=== PATIENT | male | born 1935 | race Caucasian/White ===

== ENCOUNTER 2025-06-11 12:23 | Observation (INO) ==
--- NOTE | 2025-06-11 13:33 | Emergency Department Note ---
Impression & Plan Cystitis, Hydronephrosis, left, Dysuria ED Provider Note NAME: JESSIE PEREZ Jr AGE: 89 SEX: M : 1935 ARRIVES VIA: Walk-In INFORMANT: Patient, ED PROVIDER(S): Franklin Subramanian MD CHIEF COMPLAINT: Urinary symptoms MEDICAL DECISION MAKING: Patient presents with above with associated lower abdominal pain. IV was established and blood work is obtained. Patient ordered IV Tylenol 1 g. Patient was ordered empiric IV Rocephin 2 g. The patient's blood work shows a white count of 13 with a hemoglobin of 10.6. Platelet count is unremarkable. The patient's kidney function with a creatinine 1.5 which is around the patient's baseline. The patient did receive IV fluids. Urinalysis does show concern for possible infection as he does have whites and bacteria. CT abdomen pelvis does show chronic bladder outlet obstruction and cystitis. Also mild left hydronephrosis hydroureter possible mild stricture to the left UVJ. I did reevaluate the patient's and there is concern of the patient's ability to take care of himself at home. The patient has not been eating or drinking. The patient is also have a dysuria for 3 weeks in duration. I did speak with the on-call hospitalist service NILO Martinez and the patient was admitted by Dr. Galarza. I also did message NILO Moralez with urology and the patient was admitted to the medicine service with a urology consult. Discussion w/ other healthcare providers: NILO Martinez and Dr. Melchor inpatient medicine service NILO Moralez and Dr. Pate urology Prior /Outside records reviewed: None Differential diagnosis: Appendicitis, testicular torsion, UTI, diverticulitis, obstruction, renal colic, mesenteric adenitis, enteririts, PUD, pancreatitis, biliary pathology, hernia, volvulus, constipation, as well as other pathologies were considered. Diagnostics, as interpreted by me: ECG: None Cardiac monitoring: An order was placed for continuous cardiac monitoring. The monitor shows a rate of 62 with sinus rhythm. Patient was placed on pulse oximetry Medical decision rules: None Imaging studies: I informally interpreted the patient's CT abdomen pelvis that showed concern for cystitis with formal report to follow. HPI: Patient presents due to concern for lower abdominal pain associated urinary symptoms. Patient reportedly did have a bladder cancer procedure performed by Dr. Ruiz at [facility] on May 18. The patient has had pain ever since the procedure but this has gotten progressively worse. Is reportedly seen in the outpatient setting yesterday and had a urine sample submitted but is unclear as to whether or not there was infection. The patient presented today given his worsening symptoms. The patient does have burning with urination as well as frequency. They have not noticed any obvious hematuria but it may be slightly tinged. No reported nausea or vomiting but poor p.o. intake. Patient denies any chest pain or shortness of breath no cough or fever. PAST MEDICAL HISTORY: See Below PAST SURGICAL HISTORY: See Below SOCIAL HISTORY: See Below HOME MEDICATIONS: See Below ALLERGIES: See Below VITALS: See Below PHYSICAL EXAMINATION: GENERAL: Frail in appearance. Wearing glasses. EYE EXAM: Normal conjunctiva. PERRL, no anisocoria and EOM's grossly intact w/o pain. OROPHARYNX: Moist mucus membranes, grossly normal dentition. NECK: Trachea midline, no stridor. LUNGS: Clear to auscultation. Normal chest wall mechanics. HEART: NSR, no MRG. ABDOMEN: Abdomen soft, lower abdominal pain most prominent in the suprapubic area, no masses, no rebound or guarding. BACK: No CVA TTP. SKIN: No rashes and no bruising. UPPER EXTREMITIES: Upper extremities are grossly normal. LOWER EXTREMITIES: Grossly normal, no edema. NEURO EXAM: Awake and alert, follows commands, no obvious facial asymmetry, normal speech, moves all 4 extremities. Past Med/Surg History Problem List (Updated 06/11/25 @ 20:41 by Franklin Subramanian MD) Dysuria (Acute) Cystitis (Acute) Hydronephrosis, left (Acute) Fever (Acute) Community acquired pneumonia (Acute) Medical History CKD (chronic kidney disease), stage III Bladder cancer History of esophageal cancer s/p chemo and radiation, esophagectomy and partial gastrectomy Dementia GERD (gastroesophageal reflux disease) Mitral regurgitation Tricuspid regurgitation DM type 2 (diabetes mellitus, type 2) HLD (hyperlipidemia) Social History Smoking Status: Former smoker Tobacco Type: Cigarettes Cigarettes Per Day: 1 ppd; Hx Alcohol Use: No Hx Substance Use: No Preferred Language: Chadian Communication Ability: Effective Time Clock Inspector Required: No Beliefs That Will Affect Care: None Current Living Situation: Spouse Feels Safe at Home: Yes Safety Concerns: Feels Safe At This Time Assistive Devices: Denture - Upper, Denture - Lower and Glasses Allergies Allergies Allergy/AdvReac Type Severity Reaction Status Date / Time No Known Allergies Allergy Verified 01/02/25 05:27 Home Meds Home Medications Medication Instructions Recorded Confirmed acetaminophen 500 mg tablet 1,000 mg PO Q6H PRN Fever 01/01/25 06/11/25 (Tylenol Extra Strength) aspirin 81 mg tablet,delayed 81 mg PO QPM 01/01/25 06/11/25 release cholecalciferol (vitamin D3) 25 25 mcg PO QAM 01/01/25 06/11/25 mcg (1,000 unit) tablet (Vitamin D3) cyanocobalamin (vitamin B-12) 1,000 mcg PO QAM 01/01/25 06/11/25 1,000 mcg tablet (Vitamin B-12) donepezil 10 mg tablet 10 mg PO QAM 01/01/25 06/11/25 ferrous sulfate 325 mg (65 mg 325 mg PO QAM 01/01/25 06/11/25 iron) tablet (Iron (ferrous sulfate)) finasteride 5 mg tablet 5 mg PO QAM 01/01/25 06/11/25 losartan 25 mg tablet 12.5 mg PO HS 01/01/25 06/11/25 memantine 5 mg tablet 5 mg PO QAM 01/01/25 06/11/25 multivitamin 1 tab PO QAM 01/01/25 06/11/25 pantoprazole 40 mg tablet,delayed 40 mg PO QAM 01/01/25 06/11/25 release simvastatin 40 mg tablet 40 mg PO QPM 01/01/25 06/11/25 tamsulosin 0.4 mg capsule 0.4 mg PO BID 01/01/25 06/11/25 venlafaxine 75 mg capsule,extended 75 mg PO QAM 01/01/25 06/11/25 release 24 hr Results & Data (ED) Vital Signs Vital Signs - 24 hr 06/11/25 12:55 06/11/25 13:21 06/11/25 15:36 Temperature 37.4 C Temperature Source Temporal Artery Scan Pulse Rate 63 Pulse Rate [Apical] 69 61 Respiratory Rate 18 20 18 Respiratory Effort / Characteristics Non-Labored Spontaneous Respiratory Depth Normal Respiratory Pattern Regular Blood Pressure 128/72 Blood Pressure [Left Arm] 174/73 H 142/64 H Blood Pressure Mean 90 Blood Pressure Mean [Left Arm] 106 90 Blood Pressure Position [Left Arm] Lying Pulse Oximetry 99 92 96 Oxygen Delivery Method Room Air Room Air Room Air Sepsis New/Unexplained Change in Mental Status No Sepsis Action Taken by Nursing No Action Required Home Medications Current Medication List: was personally reviewed by me Laboratory Data Attestation: I reviewed the patient's lab results. 06/11/25 13:23 06/11/25 13:23 Lab Results 06/11/25 06/11/25 Range/Units 13:23 14:22 WBC 13.15 H (4.8-10.8) K/ul RBC 3.85 L (4.70-6.10) M/uL Hgb 10.6 L (14.0-18.0) g/dl Hct 34.2 L (42.0-52.0) % MCV 88.8 (80.0-100.0) fL MCH 27.5 (25.0-34.0) pg MCHC 31.0 L (32.0-36.0) g/dL RDW Std Deviation 41.7 (36.4-46.3) fL RDW Coeff of Ami 13.0 (11.5-14.5) % Plt Count 302 (130-400) K/uL MPV 9.1 L (9.4-12.4) fL Immature Gran % (Auto) 0.5 % Neut % (Auto) 85.9 % Lymph % (Auto) 5.9 % Bullock % (Auto) 6.6 % Eos % (Auto) 0.9 % Baso % (Auto) 0.2 % Neut # (Auto) 11.28 H (1.40-6.50) K/uL Lymph # (Auto) 0.78 L (1.20-3.40) K/uL Bullock # (Auto) 0.87 H (0.11-0.59) K/uL Eos # (Auto) 0.12 (0.00-0.50) K/uL Baso # (Auto) 0.03 (0.00-0.20) K/uL Immature Gran # (Auto) 0.07 (0.01-0.20) K/uL Sodium 138 (136-145) mmol/L Potassium 4.1 (3.5-5.1) mmol/L Chloride 101 (98-107) mmol/L Carbon Dioxide 28 (21-32) mmol/L Anion Gap 9 (3-11) BUN 16 (6-23) mg/dl Creatinine 1.50 H (0.6-1.4) mg/dl Est Cr Clr Drug Dosing 28.5 ml/min eGFR 44.50 BUN/Creatinine Ratio 10.7 (10-20) Glucose 123 H (70-99(Fasting)) mg/dl Calcium 9.1 (8.6-10.3) mg/dl Total Bilirubin 0.8 (0.2-1.0) mg/dl AST 31 (13-39) U/L ALT 29 (7-52) U/L Alkaline Phosphatase 90 (34-104) U/L Total Protein 8.3 (6.0-8.3) gm/dl Albumin 3.5 (3.4-5.0) gm/dl Globulin 4.8 H (2.5-4.0) gm/dl Albumin/Globulin Ratio 0.7 L (0.9-2) Urine Color See Comment Urine Appearance Cloudy A (Clear) Urine pH Not Reportable Ur Specific [place] 1.008 (1.000-1.030) Urine Protein Not Reportable Urine Glucose (UA) Not Reportable Urine Ketones Not Reportable Urine Blood Not Reportable Urine Nitrite Not Reportable Urine Bilirubin Not Reportable Urine Urobilinogen Not Reportable Ur Leukocyte Esterase Not Reportable Urine RBC 3-5 H (0-2) /hpf Urine WBC >50 H (0-5) /hpf Ur Epithelial Cells 0-2 (0-2) /hpf Urine Bacteria 1+ H (None Seen) Urine Comment Administered Medications Aspirin (Aspirin 81 Mg Ectab) 81 mg PO QPM [facility] Stop: 07/11/25 20:59 Last Admin: 06/11/25 20:00 Dose: 81 mg Documented By: asg Sodium Chloride (Nss) 1,000 mls @ 80 mls/hr IV .[id number] [facility] Stop: 06/12/25 07:44 Last Admin: 06/11/25 20:05 Dose: 80 mls/hr Documented By: carlos Losartan Potassium (Losartan Potassium 25 Mg Tab) 12.5 mg PO HS [facility] Stop: 07/11/25 20:59 Last Admin: 06/11/25 20:00 Dose: 12.5 mg Documented By: asg Oxycodone HCl (Oxycodone Hcl Ir 5 Mg Tab (Immediate Release)) 2.5 mg PO TID [facility] Stop: 06/25/25 20:59 Last Admin: 06/11/25 20:04 Dose: 2.5 mg Documented By: tereg Simvastatin (Simvastatin 40 Mg Tab) 40 mg PO QPM [facility] Stop: 07/11/25 20:59 Last Admin: 06/11/25 20:01 Dose: 40 mg Documented By: carlos Tamsulosin HCl (Tamsulosin Hcl 0.4 Mg Cap) 0.4 mg PO BID [facility] Stop: 07/11/25 20:59 Last Admin: 06/11/25 20:01 Dose: 0.4 mg Documented By: carlos Discontinued Medications Acetaminophen (Ofirmev) 1,000 mg in 100 mls @ 400 mls/hr IV NOW STA Stop: 06/11/25 13:56 Last Infusion: 06/11/25 14:40 Dose: Infused Documented By: Admin: 06/11/25 14:19 Dose: 400 mls/hr Documented By: ZULEMA Ceftriaxone Sodium (Rocephin) 2,000 mg in 50 mls @ 100 mls/hr IV NOW STA Stop: 06/11/25 14:11 Last Infusion: 06/11/25 14:40 Dose: Infused Documented By: Admin: 06/11/25 13:55 Dose: 100 mls/hr Documented By: GUILLERMO Sodium Chloride (Nss) 500 mls @ 999 mls/hr IV .Q31M ONE Stop: 06/11/25 14:13 Last Infusion: 06/11/25 14:40 Dose: Infused Documented By: Admin: 06/11/25 13:55 Dose: 999 mls/hr Documented By: GUILLERMO Sodium Chloride (Nss) 500 mls @ 999 mls/hr IV .Q31M ONE Stop: 06/11/25 16:28 Last Infusion: 06/11/25 17:17 Dose: Infused Documented By: Admin: 06/11/25 16:20 Dose: 999 mls/hr Documented By: JERARDO Ioversol (Optiray 320 100ml) 90 ml IV ONCE ONE Stop: 06/11/25 15:07 Last Admin: 06/11/25 15:06 Dose: 90 ml Documented By: MIRTA Phenazopyridine HCl (Phenazopyridine Hcl 100 Mg Tab) 100 mg PO NOW ONE Stop: 06/11/25 19:31 Last Admin: 06/11/25 20:00 Dose: 100 mg Documented By: asg Imaging Data Radiologist's Impression: Abdomen/Pelvis CT 06/11/25 13:[address] WITH IV CONTRAST CT DOSE: 1193.12 mGy.cm HISTORY: lower ab pain; urinary symptoms, bladder procedure TECHNIQUE: Multiaxial CT images of the abdomen and pelvis were performed following the IV administration of 90 cc of Optiray, A dose lowering technique was utilized adhering to the principles of ALARA. COMPARISON STUDY: None FINDINGS: There is a trace left pleural effusion. There is mild elevation of the left hemidiaphragm. There is partially visualized hiatal hernia versus gastric pull-up. There are mitral valvular calcifications. There are calcifications at the left diaphragm. There is a calcified pulmonary granuloma at the right lower lobe. ABDOMEN: Liver, gallbladder, spleen, pancreas, and adrenal glands are unremarkable. There are scattered atherosclerotic calcifications. No abdominal aortic aneurysm. There is a small amount of contrast in the right renal collecting system which limits evaluation for renal calculi. There is trace left renal collecting system contrast versus a tiny nonobstructing calculus. There is no hydronephrosis on the right. There is mild left hydronephrosis and hydroureter. No ureteral calculi seen. Pelvis: Prostate is enlarged. Urinary bladder is distended with mildly thickened wall consistent with chronic bladder outlet obstruction. There is mild inflammation at the urinary bladder consistent with cystitis. There is a possible mild stricture at the left UVJ. There is sigmoid diverticulosis. No acute diverticulitis. No bowel inflammation or obstruction. No free fluid or free air. No enlarged adenopathy. 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 IMPRESSION: 1. Findings consistent with chronic bladder outlet obstruction and cystitis. 2. Mild left hydronephrosis and hydroureter with possible mild stricture at the left UVJ. 3. Otherwise as described. ACT 112: Negative or not required by law. The above report was generated using voice recognition software. It may contain grammatical, syntax or spelling errors. Electronically signed by: Kalia De La Vega M.D. 06/11/2025 3:25 PM Discharge Plan Visit Data Chief Complaint: Urinary Symptoms Stated Complaint: PAIN, BLADDER, CANCER URINARY ED Provider: Franklin Subramanian Discharge Problem: Cystitis, Hydronephrosis, left, Dysuria Patient Disposition: Admitted As Inpatient Condition: Good Discharge Instructions Interventions: ED Discharge Assessment Last Done: 06/11/25 18:17
[2025-06-11 13:48] LABS: Hematocrit (blood only) 34.2 % (42.0-52.0); Hemoglobin 10.6 g/dl (14.0-18.0); Immature Granulocytes # (auto) 0.07 K/uL (0.01-0.20); Immature Granulocytes % (auto) 0.5 %; Mean Corpuscular Hemoglobin 27.5 pg (25.0-34.0); Mean Corpuscular Volume 88.8 fL (80.0-100.0); Platelet Count 302 K/uL (130-400); RDW Standard Deviation 41.7 fL (36.4-46.3); Red Blood Count 3.85 M/uL (4.70-6.10); White Blood Count 13.15 K/ul (4.8-10.8)
[2025-06-11] MEDS: SODIUM CHLORIDE 0.9% 500 ML IV ONE ×2 (13:55→16:20)
[2025-06-11] MEDS: cefTRIAXone SODIUM 2,000 MG/50 ML BAG IV STA (13:55)
[2025-06-11 14:11] LABS: Alanine Aminotransferase 29.0 U/L (7-52); Albumin Globulin Ratio 0.7 (0.9-2); Albumin Level 3.5 gm/dl (3.4-5.0); Alkaline Phosphatase 90.0 U/L (34-104); Anion Gap 9.0 (3-11); Bilirubin,Total 0.8 mg/dl (0.2-1.0); Blood Urea Nitrogen 16.0 mg/dl (6-23); Calcium 9.1 mg/dl (8.6-10.3); Carbon Dioxide 28.0 mmol/L (21-32); Chloride 101.0 mmol/L (98-107); Creatinine Clr Calc Pharmacy 28.5 ml/min; Globulin 4.8 gm/dl (2.5-4.0); Glucose 123.0 mg/dl (70-99(Fasting)); Potassium 4.1 mmol/L (3.5-5.1); Sodium 138.0 mmol/L (136-145); Total Protein 8.3 gm/dl (6.0-8.3)
[2025-06-11] MEDS: ACETAMINOPHEN 1,000 MG/100 ML VIAL IV STA (14:19)
[2025-06-11 14:34] LABS: Appearance Urine Cloudy (Clear)
[2025-06-11 14:40] LABS: Epithelial Cell Urine 0-2 /hpf (0-2)
[2025-06-11] MEDS: OPTIRAY 320 100ml IV ONE (15:06)
--- NOTE | 2025-06-11 15:27 | CT Scan Report ---
ABDOMEN AND PELVIS CT WITH IV CONTRAST CT DOSE: 1193.12 mGy.cm HISTORY: lower ab pain; urinary symptoms, bladder procedure TECHNIQUE: Multiaxial CT images of the abdomen and pelvis were performed following the IV administrat ion of 90 cc of Optiray, A dose lowering technique was utilized adhering to the principles of ALARA. COMPARISON STUDY: None FINDINGS: There is a trace left pleural effusion. There is mild elevation of the left hemidiaphragm. There is partially visualized hiatal hernia versus gastric pull-up. There are mitral valvular calcifi cations. There are calcifications at the left diaphragm. There is a calcified pulmonary granuloma at the right lower lobe. ABDOMEN: Liver, gallbladder, spleen, pancreas, and adrenal glands are unremarkable. There are scatter ed atherosclerotic calcifications. No abdominal aortic aneurysm. There is a small amount of contrast in the right renal collecting system which limits evaluation for renal calculi. There is trace left r enal collecting system contrast versus a tiny nonobstructing calculus. There is no hydronephrosis on the right. There is mild left hydronephrosis and hydroureter. No ureteral calculi seen. Pelvis: Prostate is enlarged. Urinary bladder is distended with mildly thickened wall consistent with chronic bladder outlet obstruction. There is mild inflammation at the urinary bladder consistent wit h cystitis. There is a possible mild stricture at the left UVJ. There is sigmoid diverticulosis. No a cute diverticulitis. No bowel inflammation or obstruction. No free fluid or free air. No enlarged jennifer nopathy. 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 IMPRESSION: 1. Findings consistent with chronic bladder outlet obstruction and cystitis. 2. Mild left hydronephrosis and hydroureter with possible mild stricture at the left UVJ. 3. Otherwise as described. ACT 112: Negative or not required by law. The above report was generated using voice recognition software. It may contain grammatical, syntax o r spelling errors. Electronically signed by: Kalia De La Vega M.D. 06/11/2025 3:25 PM
[2025-06-11] MEDS ORDERED: PHENAZOPYRIDINE HCL 100 MG TAB PO PRN (16:36)
--- NOTE | 2025-06-11 16:49 | Urology Consultation ---
<Statement entered by Rigoberto Arnett MD - 06/12/25 07:24> 89 year old male with newly diagnosed muscle invasive bladder cancer, with evidence of incomplete bladder emptying and left hydronephrosis suggestive of scar tissue / stenosis at the distal left ureter. He does not appear overtly infected, although creatinine is slightly elevated. Pressure / discomfort over the bladder may be related to his recent procedure, although would recommend urine culture to evaluate for underlying infection. He may also be having discomfort from incomplete emptying. CIC or prince catheter would be reasonable to try, although he is hesitant to undergo catheterization. It doesn't seem like he is having pain from the hydronephrosis on the left. If kidney function worsens, he starts having pain or starts to decompensate clinically, would potentially offer left ureteral stent placement. Date of Consultation June 11, 2025 Assessment & Plan (1) Hydronephrosis, left: Plan 89yo M who is s/p recent urological procedure at [facility] (May 18) for removal of bladder mass who presented to the ED with c/o suprapubic pain, dysuria, urinary frequency, weakness and poor appetite. CT abd pelvis on arrival demonstrated mild left hydronephrosis and hydroureter with possible mild stricture at the left UVJ, no ureteral stone seen, and findings of bladder outlet obstruction and cystitis. Patient is afebrile and hemodynamically stable. Labs showing mild leukocytosis of 13.15, hemoglobin 10.6, creatinine 1.50. Urine culture pending. He received ceftriaxone in the ED. Has been voiding spontaneously, but reports urinary frequency and dysuria. Was bladder scanned for 260ml. He prefers to avoid catheterization if possible-continue to monitor bladder scan/PVRs. Continue supportive care and antibiotic therapy. Continue Flomax, Finasteride, and Pyridium PRN. Will review with Dr. Arnett. History of Present Illness History of Present Illness 89-year-old male who presented to the ED today with concerns of lower abdominal/bladder pain, dysuria, and urinary frequency. Patient reportedly had a procedure performed by Dr. Ruiz at [facility] on May 18. Per the patient/, he was found to have a bladder mass which was resected. Per his , they were able to remove a majority of the tumor but he did have some muscle invasion. He has an appointment next week at [facility] to discuss cystectomy per his . He did have a catheter for a few days following his procedure. Since his procedure, he has had dysuria, frequency, and bladder discomfort. No hematuria. Denies fever, chills, nausea, vomiting. No flank or back pain. Patient's reports a poor appetite. In the ED he was afebrile and hemodynamically stable. Labs show a white count of 13.15, hemoglobin 10.6, creatinine 1.50. Urinalysis showing 35 RBC,> 50 WBC, 1+ bacteria, otherwise not reportable due to color. CT abdomen pelvis - Prostate is enlarged. Urinary bladder is distended with mildly thickened wall consistent with chronic bladder outlet obstruction. There is mild inflammation at the urinary bladder consistent with cystitis. Mild left hydronephrosis and hydroureter with possible mild stricture at the left UVJ. Patient was seen at bedside in the ED. He is awake and resting in bed on arrival. No acute distress. at bedside. Reports he had breakfast between 8-9 AM. Has been voiding, but but reports frequency and dysuria. No fevers, chills, nausea, vomiting. His reports he has been weak and has had a poor appetite. Allergies Allergy/AdvReac Type Severity Reaction Status Date / Time No Known Allergies Allergy Verified 01/02/25 05:27 Home Medications Medication Instructions Recorded Confirmed Type acetaminophen 500 mg tablet 1,000 mg PO Q6H PRN Fever 01/01/25 06/11/25 History (Tylenol Extra Strength) aspirin 81 mg tablet,delayed 81 mg PO QPM 01/01/25 06/11/25 History release cholecalciferol (vitamin D3) 25 25 mcg PO QAM 01/01/25 06/11/25 History mcg (1,000 unit) tablet (Vitamin D3) cyanocobalamin (vitamin B-12) 1,000 mcg PO QAM 01/01/25 06/11/25 History 1,000 mcg tablet (Vitamin B-12) donepezil 10 mg tablet 10 mg PO QAM 01/01/25 06/11/25 History ferrous sulfate 325 mg (65 mg 325 mg PO QAM 01/01/25 06/11/25 History iron) tablet (Iron (ferrous sulfate)) finasteride 5 mg tablet 5 mg PO QAM 01/01/25 06/11/25 History losartan 25 mg tablet 12.5 mg PO HS 01/01/25 06/11/25 History memantine 5 mg tablet 5 mg PO QAM 01/01/25 06/11/25 History multivitamin 1 tab PO QAM 01/01/25 06/11/25 History pantoprazole 40 mg tablet,delayed 40 mg PO QAM 01/01/25 06/11/25 History release simvastatin 40 mg tablet 40 mg PO QPM 01/01/25 06/11/25 History tamsulosin 0.4 mg capsule 0.4 mg PO BID 01/01/25 06/11/25 History venlafaxine 75 mg capsule,extended 75 mg PO QAM 01/01/25 06/11/25 History release 24 hr Patient History Social History Smoking Status: Former smoker Tobacco Type: Cigarettes Cigarettes Per Day: 1 ppd; Hx Alcohol Use: Yes Alcohol type: beer Hx Substance Use: No Preferred Language: Kazakh Communication Ability: Effective Programmer Analyst Consultant Required: No Beliefs That Will Affect Care: None Current Living Situation: Spouse Feels Safe at Home: Yes Assistive Devices: Cane Review of Systems Review of Systems: All systems reviewed & are unremarkable except as noted in HPI & below Physical Exam Constitutional: no acute distress Respiratory: no respiratory distress and no labored breathing Gastrointestinal (Abdomen): Abdomen soft, lower abdominal pain most prominent in the suprapubic area Neurologic: awake Psychiatric: Orientation: alert, oriented to person and cooperative Genitourinary: no CVA tenderness Results & Data Vital Signs (Past 12 Hours) Vital Signs Temp Pulse Pulse Resp BP BP Pulse Ox 06/11/25 15:36 61 18 142/64 H 96 06/11/25 13:21 69 20 174/73 H 92 06/11/25 12:55 37.4 C 63 18 128/72 99 O2 Del Method 06/11/25 15:36 Room Air 06/11/25 13:21 Room Air 06/11/25 12:55 Room Air PG Care Time/CCT Total # of Minutes Spent Total Time Spent with Patient: Total time spent is greater than 50% in coordination of care (as documented) at patient's floor/unit and/or counseling patient: Coding Level of Care Code 77062 INT INP/OBS CARE 2/55MIN Diagnoses Hydronephrosis, left N13.30
--- NOTE | 2025-06-11 17:02 | History & Physical Report ---
<Statement entered by Geo Melchor, - 06/11/25 18:14> I have seen and examined the patient and have discussed the case with the advance practice provider. I have reviewed the advanced practitioner's documentation, and I agree with, and take responsibility for that plan of care. Patient with multiple urinary symptoms since his surgery. Describes burning, describes frequency describes irritability of the bladder. Explained to patient and that most likely be a combination of different interventions to offer him some relief. Discussed scheduled Pyridium and low-dose oxycodone with LESLY. Discussed lidocaine jelly in the urethra with the patient, and LESLY. This point we will see how effective the above treatment is, patient would really like to avoid putting anything in the urethra. Further plan of care as outlined below I spent a total of 17 minutes coordinating, documenting, and providing care for this patient excluding time spent by another provider/QHP. Date of Service June 11, 2025 Assessment & Plan (1) Hydronephrosis, left: (2) Bladder cancer: Plan: Possible UTI Admit to [facility] Patient presenting from home for evaluation of dysuria. Patient recently underwent TURBT on 05/18/2025 at [facility] by Dr. Oro. Pathology showing invasive papillary urothelial carcinoma, high-grade with muscularis propria involvement. Patient has upcoming appointments with urology at [facility] and radiation oncology. Patient reports dysuria since his surgery. Provided urine sample yesterday through PCPs office, urine culture currently pending. In the ED, patient is hemodynamically stable, labs show WBC 13K, creatinine 1.5, UA 1+ bacteria and > 50 WBC. Patient was given IV Tylenol, IV ceftriaxone, IVF. CT ABD/pelvis: Findings consistent with chronic bladder outlet obstruction and cystitis. Mild left hydronephrosis and hydroureter with possible mild stricture at the left UVJ. Afebrile, mild leukocytosis WBC 13K S/p IV ceftriaxone in the ED, continue with Note pending urine culture in [email or web address] system from 06/10/2025 - follow results Scheduled Pyridium with low-dose scheduled oxycodone IVF Urology consult - note reviewed PT/OT (3) Dementia: Plan: Continue home meds (4) CKD (chronic kidney disease), stage III: Plan: Creatinine 1.5, at baseline Continue to monitor renal functions (5) HLD (hyperlipidemia): Plan: Continue CONTENT CHECKER statin DVT PROPHYLAXIS SCDs for now given risk of hematuria Patient seen in collaboration with Dr. Melchor. I spent a total of 75 minutes coordinating, documenting, and providing care for this patient excluding time spent in the performance of separately billed services. This included personally reviewing all current laboratories and imaging studies, medication reconciliation, outpatient chart review, and discussion with specialists. History of Present Illness Chief Complaint: dysuria Primary Care Provider: Franklin Mayo MD 89-year-old male with PMH HLD, diet-controlled DM type II, sinus bradycardia, mild AAS, moderate MR, severe TR, CKD stage III, history of esophageal cancer s/p chemo and radiation and esophagectomy and partial gastrectomy, GERD, dementia, and other problems listed below who presents to the ED for evaluation of dysuria. Patient recently underwent TURBT on 05/18/2025 at [facility] by Dr. Oro. Pathology showing invasive papillary urothelial carcinoma, high-grade with muscularis propria involvement. patient has upcoming appointments with urology at [facility] and radiation oncology. Patient reports dysuria since his surgery. Provided urine sample yesterday through PCPs office, urine culture currently pending. Patient denies fevers and chills. Appetite has been poor however denies abdominal pain, nausea, vomit, diarrhea. No chest pain, shortness of breath, palpitations. Denies lightheadedness, dizziness, diaphoresis, syncopal events. No hematuria reported. In the ED, patient is hemodynamically stable, labs show WBC 13K, creatinine 1.5, UA 1+ bacteria and > 50 WBC. Patient was given IV Tylenol, IV ceftriaxone, IVF. Allergies Allergy/AdvReac Type Severity Reaction Status Date / Time No Known Allergies Allergy Verified 01/02/25 05:27 Home Medications Medication Instructions Recorded Confirmed Type acetaminophen 500 mg tablet 1,000 mg PO Q6H PRN Fever 01/01/25 06/11/25 History (Tylenol Extra Strength) aspirin 81 mg tablet,delayed 81 mg PO QPM 01/01/25 06/11/25 History release cholecalciferol (vitamin D3) 25 25 mcg PO QAM 01/01/25 06/11/25 History mcg (1,000 unit) tablet (Vitamin D3) cyanocobalamin (vitamin B-12) 1,000 mcg PO QAM 01/01/25 06/11/25 History 1,000 mcg tablet (Vitamin B-12) donepezil 10 mg tablet 10 mg PO QAM 01/01/25 06/11/25 History ferrous sulfate 325 mg (65 mg 325 mg PO QAM 01/01/25 06/11/25 History iron) tablet (Iron (ferrous sulfate)) finasteride 5 mg tablet 5 mg PO QAM 01/01/25 06/11/25 History losartan 25 mg tablet 12.5 mg PO HS 01/01/25 06/11/25 History memantine 5 mg tablet 5 mg PO QAM 01/01/25 06/11/25 History multivitamin 1 tab PO QAM 01/01/25 06/11/25 History pantoprazole 40 mg tablet,delayed 40 mg PO QAM 01/01/25 06/11/25 History release simvastatin 40 mg tablet 40 mg PO QPM 01/01/25 06/11/25 History tamsulosin 0.4 mg capsule 0.4 mg PO BID 01/01/25 06/11/25 History venlafaxine 75 mg capsule,extended 75 mg PO QAM 01/01/25 06/11/25 History release 24 hr Past Med/Surg History Problem List (Updated 06/11/25 @ 17:25 by NILO Martinez) Hydronephrosis, left Fever (Acute) Community acquired pneumonia (Acute) Medical History (Updated 06/11/25 @ 17:25 by NILO Martinez) CKD (chronic kidney disease), stage III Bladder cancer History of esophageal cancer s/p chemo and radiation, esophagectomy and partial gastrectomy Dementia GERD (gastroesophageal reflux disease) Mitral regurgitation Tricuspid regurgitation DM type 2 (diabetes mellitus, type 2) HLD (hyperlipidemia) Social History Smoking Status: Former smoker Tobacco Type: Cigarettes Cigarettes Per Day: 1 ppd; Hx Alcohol Use: Yes Alcohol type: beer Hx Substance Use: No Preferred Language: Angolan Communication Ability: Effective Seed Sorter Required: No Beliefs That Will Affect Care: None Current Living Situation: Spouse Feels Safe at Home: Yes Assistive Devices: Cane Physical Exam Constitutional: + frail appearing; no acute distress Respiratory: normal respiratory effort, lungs clear to auscultation Cardiovascular: Rate/Rhythm: regular rate and regular rhythm Heart Sounds: + murmur ( grade 3/6 systolic murmur) Vessels: normal peripheral pulses Extremities: + edema ( trace edema BLE) Skin: no rashes, warm and dry Neurologic: no focal motor deficits Psychiatric: A+Ox3, euthymic affect Insight: + limited insight Results & Data Results & Data Vital Signs (Past 12 Hours) Vital Signs Temp Pulse Pulse Resp BP BP Pulse Ox 06/11/25 15:36 61 18 142/64 H 96 06/11/25 13:21 69 20 174/73 H 92 06/11/25 12:55 37.4 C 63 18 128/72 99 O2 Del Method 06/11/25 15:36 Room Air 06/11/25 13:21 Room Air 06/11/25 12:55 Room Air Laboratory Results Short CBC 06/11/25 Range/Units 13:23 WBC 13.15 H (4.8-10.8) K/ul Hgb 10.6 L (14.0-18.0) g/dl Hct 34.2 L (42.0-52.0) % Plt Count 302 (130-400) K/uL BMP 06/11/25 13:23 Sodium 138 Potassium 4.1 Chloride 101 Carbon Dioxide 28 BUN 16 Creatinine 1.50 H Glucose 123 H Calcium 9.1 Liver Function 06/11/25 Range/Units 13:23 Total Bilirubin 0.8 (0.2-1.0) mg/dl AST 31 (13-39) U/L ALT 29 (7-52) U/L Alkaline Phosphatase 90 (34-104) U/L Albumin 3.5 (3.4-5.0) gm/dl Urine 06/11/25 Range/Units 14:22 Urine Color See Comment Urine Appearance Cloudy A (Clear) Urine pH Not Reportable Ur Specific [place] 1.008 (1.000-1.030) Urine Protein Not Reportable Urine Glucose (UA) Not Reportable Diagnostic Findings Abdomen/Pelvis CT 06/11/25 13:[address] WITH IV CONTRAST CT DOSE: 1193.12 mGy.cm HISTORY: lower ab pain; urinary symptoms, bladder procedure TECHNIQUE: Multiaxial CT images of the abdomen and pelvis were performed following the IV administration of 90 cc of Optiray, A dose lowering technique was utilized adhering to the principles of ALARA. COMPARISON STUDY: None FINDINGS: There is a trace left pleural effusion. There is mild elevation of the left hemidiaphragm. There is partially visualized hiatal hernia versus gastric pull-up. There are mitral valvular calcifications. There are calcifications at the left diaphragm. There is a calcified pulmonary granuloma at the right lower lobe. ABDOMEN: Liver, gallbladder, spleen, pancreas, and adrenal glands are unremarkable. There are scattered atherosclerotic calcifications. No abdominal aortic aneurysm. There is a small amount of contrast in the right renal collecting system which limits evaluation for renal calculi. There is trace left renal collecting system contrast versus a tiny nonobstructing calculus. There is no hydronephrosis on the right. There is mild left hydronephrosis and hydrou reter. No ureteral calculi seen. Pelvis: Prostate is enlarged. Urinary bladder is distended with mildly thickened wall consistent with chronic bladder outlet obstruction. There is mild inflammation at the urinary bladder consistent with cystitis. There is a possible mild stricture at the left UVJ. There is sigmoid diverticulosis. No acute diverticulitis. No bowel inflammation or obstruction. No free fluid or free air. No enlarged adenopathy. 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 IMPRESSION: 1. Findings consistent with chronic bladder outlet obstruction and cystitis. 2. Mild left hydronephrosis and hydroureter with possible mild stricture at the left UVJ. 3. Otherwise as described. ACT 112: Negative or not required by law. The above report was generated using voice recognition software. It may contain grammatical, syntax or spelling errors. Electronically signed by: Kalia De La Vega M.D. 06/11/2025 3:25 PM Code Status & VTE Plan VTE Prophylaxis Plan VTE Prophylaxis will be ordered: Yes
[2025-06-11 18:07] VITALS: RESP 16
[2025-06-11] MEDS: LOSARTAN POTASSIUM 25 MG TAB PO SCH (20:00)
[2025-06-11] MEDS: ASPIRIN 81 MG ECTAB PO SCH (20:00)
[2025-06-11] MEDS: PHENAZOPYRIDINE HCL 100 MG TAB PO ONE (20:00)
[2025-06-11] MEDS: SIMVASTATIN 40 MG TAB PO SCH (20:01)
[2025-06-11] MEDS: TAMSULOSIN HCL 0.4 MG CAP PO SCH (20:01)
[2025-06-11] MEDS: SODIUM CHLORIDE 0.9% 1,000 ML IV SCH (20:05)
[2025-06-12] MEDS ORDERED: HYDROmorphone INJ 0.5 MG/0.5 ML SYR IV PRN (02:20)
[2025-06-12] MEDS: ACETAMINOPHEN 325 MG TAB PO PRN (02:34)
[2025-06-12] MEDS: PHENAZOPYRIDINE HCL 100 MG TAB PO PRN (02:34)
[2025-06-12 07:40] LABS: Hematocrit (blood only) 27.5 % (42.0-52.0); Hemoglobin 8.8 g/dl (14.0-18.0); Mean Corpuscular Hemoglobin 28.1 pg (25.0-34.0); Mean Corpuscular Volume 87.9 fL (80.0-100.0); Platelet Count 254 K/uL (130-400); RDW Standard Deviation 41.1 fL (36.4-46.3); Red Blood Count 3.13 M/uL (4.70-6.10); White Blood Count 10.05 K/ul (4.8-10.8)
[2025-06-12 07:56] LABS: Anion Gap 7.0 (3-11); Blood Urea Nitrogen 16.0 mg/dl (6-23); Calcium 8.2 mg/dl (8.6-10.3); Carbon Dioxide 26.0 mmol/L (21-32); Chloride 106.0 mmol/L (98-107); Creatinine Clr Calc Pharmacy 26.2 ml/min; Glucose 93.0 mg/dl (70-99(Fasting)); Potassium 3.6 mmol/L (3.5-5.1); Sodium 139.0 mmol/L (136-145)
--- NOTE | 2025-06-12 08:16 | Hospitalist Progress Note ---
Date of Service June 12, 2025 Assessment & Plan (1) Bladder outlet obstruction: (2) Hydronephrosis, left: (3) Bladder cancer: (4) Dementia: (5) CKD (chronic kidney disease), stage III: (6) HLD (hyperlipidemia): Plan 89-year-old male with PMH significant for hypertension, hyperlipidemia, diet- controlled DM type II, sinus bradycardia, mild , moderate MR, severe TR, CKD stage III, history of esophageal cancer s/p chemo and radiation and esophagectomy and partial gastrectomy (2015), GERD, dementia, BPH, depression/anxiety, and bladder cancer who presented to the ED on 06/11/2025 with dysuria after a recent TURBT. Possible UTI Bladder outlet obstruction Left hydronephrosis Patient presenting with dysuria after TURBT on 05/18/2025 at [facility] by Dr. Oro CTAP revealed chronic bladder outlet obstruction and cystitis, mild left hydronephrosis and hydroureter with possible mild stricture at left UVJ Initial leukocytosis resolved today and vitals are stable Continue ceftriaxone while awaiting urine culture results Pain control with pyridium and oxycodone PRN Urology consulted: appreciate recs Bladder cancer Following with [facility] and Oncology CT urography on 03/13/2025 revealed 3.5cm bladder wall mass Pathology from TURBT on 05/18/2025 revealed invasive papillary urothelial carcinoma, high grade with muscularis propria involvement PET scan on 06/16/[address] Guillen of Urology at [place] on 06/17/[address] Arora of Oncology on 06/24/2025 Referral for Rad Onc in process-> requesting [facility] due to proximity CKD Baseline creatinine around 1.4 per Epic Creat 1.6 today Avoid nephrotoxic agents as able Monitor renal function Hypertension Continue losartan Hyperlipidemia Continue statin BPH Continue finasteride and tamsulosin Depression/anxiety Continue venlafaxine Dementia Continue donepezil and memantine GERD Continue PPI DVT Prophylaxis: SCDs Code Status: DNR/DNI PCP: Franklin Mayo Disposition: PT/OT evals pending Patient seen in collaboration with Dr. Stephens. Please see addendum. I spent a total of [ ] minutes coordinating, documenting and providing care for this patient excluding time spent in the performance of separately billed services or time spent by another provider/QHP. Admission and Anticipated Discharge Date Admission Date: June 11, 2025 Results & Data Results & Data Vital Signs (Past 12 Hours) Vital Signs Temp Resp BP Pulse Ox O2 Del Method 06/11/25 23:00 37.1 C 16 122/62 92 Room Air Laboratory Results Short CBC 06/11/25 06/12/25 Range/Units 13:23 07:10 WBC 13.15 H 10.05 (4.8-10.8) K/ul Hgb 10.6 L 8.8 L (14.0-18.0) g/dl Hct 34.2 L 27.5 L (42.0-52.0) % Plt Count 302 254 (130-400) K/uL BMP 06/11/25 06/12/25 13:23 07:10 Sodium 138 139 Potassium 4.1 3.6 Chloride 101 106 Carbon Dioxide 28 26 BUN 16 16 Creatinine 1.50 H 1.63 H Glucose 123 H 93 Calcium 9.1 8.2 L Liver Function 06/11/25 Range/Units 13:23 Total Bilirubin 0.8 (0.2-1.0) mg/dl AST 31 (13-39) U/L ALT 29 (7-52) U/L Alkaline Phosphatase 90 (34-104) U/L Albumin 3.5 (3.4-5.0) gm/dl Urine 06/11/25 Range/Units 14:22 Urine Color See Comment Urine Appearance Cloudy A (Clear) Urine pH Not Reportable Ur Specific [place] 1.008 (1.000-1.030) Urine Protein Not Reportable Urine Glucose (UA) Not Reportable I have independently reviewed and interpreted patient's labs including CBC and BMP. Medications Administered Current Inpatient Medications Acetaminophen (Acetaminophen 325 Mg Tab) 650 mg PO Q4H PRN PRN Reason: pain/fever Stop: 07/11/25 18:58 Last Admin: 06/12/25 02:34 Dose: 650 mg Aspirin (Aspirin 81 Mg Ectab) 81 mg PO QPM [facility] Stop: 07/11/25 20:59 Last Admin: 06/11/25 20:00 Dose: 81 mg Donepezil HCl (Donepezil Hcl 10 Mg Tab) 10 mg PO QAM HELENA Stop: 07/12/25 08:59 Ferrous Sulfate (Ferrous Sulfate 325 Mg Tab) 325 mg PO QAM HELENA Stop: 07/12/25 08:59 Finasteride (Finasteride 5 Mg Tab) 5 mg PO QAM HELENA Stop: 07/12/25 08:59 Hydromorphone HCl (Hydromorphone Inj 0.5 Mg/0.5 Ml Syr) 0.25 mg IV Q4H PRN PRN Reason: Pain Stop: 06/26/25 02:19 Ceftriaxone Sodium (Rocephin) 1,000 mg in 50 mls @ 100 mls/hr IV Q24H HELENA Stop: 06/17/25 14:59 Losartan Potassium (Losartan Potassium 25 Mg Tab) 12.5 mg PO HS HELENA Stop: 07/11/25 20:59 Last Admin: 06/11/25 20:00 Dose: 12.5 mg Memantine (Memantine Hcl 5 Mg Tab) 5 mg PO QAM HELENA Stop: 07/12/25 08:59 Oxycodone HCl (Oxycodone Hcl Ir 5 Mg Tab (Immediate Release)) 2.5 mg PO TID HELENA Stop: 06/25/25 20:59 Last Admin: 06/11/25 20:04 Dose: 2.5 mg Pantoprazole Sodium (Pantoprazole 40 Mg Tab) 40 mg PO QAM HELENA Stop: 07/12/25 08:59 Phenazopyridine HCl (Phenazopyridine Hcl 100 Mg Tab) 100 mg PO TID PRN PRN Reason: Bladder pain Stop: 07/12/25 02:19 Last Admin: 06/12/25 02:34 Dose: 100 mg Simvastatin (Simvastatin 40 Mg Tab) 40 mg PO QPM HELENA Stop: 07/11/25 20:59 Last Admin: 06/11/25 20:01 Dose: 40 mg Tamsulosin HCl (Tamsulosin Hcl 0.4 Mg Cap) 0.4 mg PO BID HELENA Stop: 07/11/25 20:59 Last Admin: 06/11/25 20:01 Dose: 0.4 mg Venlafaxine HCl (Venlafaxine Hcl Xr 75 Mg Capxr) 75 mg PO QAM HELENA Stop: 07/12/25 08:59
[2025-06-12] MEDS: FERROUS SULFATE 325 MG TAB PO SCH (08:17)
[2025-06-12] MEDS: VENLAFAXINE HCL XR 75 MG CAPXR PO SCH (08:17)
[2025-06-12] MEDS: DONEPEZIL HCL 10 MG TAB PO SCH (08:18)
[2025-06-12] MEDS: FINASTERIDE 5 MG TAB PO SCH (08:18)
[2025-06-12] MEDS: MEMANTINE HCL 5 MG TAB PO SCH (08:18)
[2025-06-12 09:01] VITALS: BP 145/75; PULSE 64; TEMP 98.7; O2SAT 95
--- NOTE | 2025-06-12 12:13 | Urology Progress Note ---
Date of Service June 12, 2025 Assessment & Plan (1) Hydronephrosis, left: (2) Dysuria: Plan 89 year old male who presented with dysuria after TURBT on 05/18/2025 at [facility] by Dr. Oro. Patient with newly diagnosed muscle invasive bladder cancer, with evidence of incomplete bladder emptying and left hydronephrosis suggestive of scar tissue / stenosis at the distal left ureter. Afebrile and hemodynamically stable Labs -WBCs 10.05, creatinine 1.63 (baseline around 1.4 per notes) Voiding spontaneously, was bladder scanned for 343ml earlier this morning Urine culture pending, on Ceftriaxone Discussed with the patient and his the finding of left hydronephrosis sugge stive of scar tissue/stenosis at the distal left ureter. Discussed that he does not appear overtly infection, but his creatinine is elevated and there is evidence of incomplete bladder emptying. We did discuss catheterization given his incomplete emptying and to see if his creatinine improves. Also discussed potential for left ureteral stent placement. He declines catheterization and left ureteral stent placement. He is subjectively feeling better today and would like to be discharged home. No plan for intervention. If discharge is anticipated today, would recommend close outpatient follow-up with his primary urologist. Recommend continuing antibiotics while awaiting culture results. Continue supportive care and pain management as needed. If kidney function worsens, he starts having pain or starts to decompensate clinically, we can revisit prince catheter placement and left ureteral stent placement. Urology will follow peripherally, please contact us with any questions/concerns or changes in patients clinical status. Admission and Anticipated Discharge Date Admission Date: June 11, 2025 Subjective Patient seen at bedside this morning. Awake and resting in bed on arrival. No acute distress. at bedside. Patient is feeling better and requesting to be discharged. Reports his dysuria has resolved. Denies hematuria. Feels he is emptying his bladder well. He denies bladder or flank pain. No fevers, chills, nausea, vomiting. Review of Systems Constitutional: as per Subjective / HPI Genitourinary: + as per Subjective / HPI Physical Exam Constitutional: no acute distress Respiratory: no respiratory distress and no labored breathing Neurologic: awake Psychiatric: Orientation: alert, oriented to person and cooperative Results & Data Vital Signs (Past 12 Hours) Vital Signs Temp Pulse Resp BP Pulse Ox O2 Del Method 06/12/25 08:53 37.1 C 64 16 145/75 H 95 Room Air PG Care Time/CCT Total # of Minutes Spent Total Time Spent with Patient: Total time spent is greater than 50% in coordination of care (as documented) at patient's floor/unit and/or counseling patient: Coding Level of Care Code 86190 SUB INP/OBS CARE 2/35MIN Diagnoses Hydronephrosis, left N13.30 Dysuria R30.0
--- NOTE | 2025-06-12 13:05 | Discharge Summary ---
<Statement entered by Young Stephens DO - 06/12/25 13:17> seen and examined. feeling well and demanding to be discharged. Cr increased from baseline. He is refusing prince placement to decompress bladder. d/w urology, ok for DC today. prior urine prelim cx growing enterococcus. Will have to assume it is E. faecalis. CTX will not treat. switch to augmentin x 5 days. He will f/u with urology on sunday. He was advised to ask his urologist or PCP for BMP on sunday to ensure Cr is stable. I spent a total of 20 minutes coordinating, documenting, and providing care for this patient excluding time spent in the performance of separately billed services. This included personally reviewing all current laboratories and imaging studies, medical reconciliation, outpatient chart review and discussion with specialists Discharge Summary Date of Service June 12, 2025 Principal Dx & Hospital Course #1 = Principal Diagnosis (1) Bladder outlet obstruction: (2) Hydronephrosis, left: (3) Bladder cancer: (4) Dementia: (5) CKD (chronic kidney disease), stage III: (6) HLD (hyperlipidemia): Plan 89-year-old male with PMH significant for hypertension, hyperlipidemia, diet- controlled DM type II, sinus bradycardia, mild , moderate MR, severe TR, CKD stage III, history of esophageal cancer s/p chemo and radiation and esophagectomy and partial gastrectomy (2015), GERD, dementia, BPH, depression/anxiety, and bladder cancer who presented to the ED on 06/11/2025 with dysuria after a recent TURBT. Possible UTI Bladder outlet obstruction Left hydronephrosis Patient presenting with dysuria after TURBT on 05/18/2025 at [facility] by Dr. Oro CTAP revealed chronic bladder outlet obstruction and cystitis, mild left hydronephrosis and hydroureter with possible mild stricture at left UVJ Initial leukocytosis resolved today and vitals are stable Outpatient urine culture prelim enterococcus Urology consulted and offered catheterization to aide in complete bladder emptying and potential left ureteral stent placement but patient declined both He requested to be sent home with scripts for pain medicine-> sent Augmentin x5 days for UTI and Pyridium and Oxycodone for pain control Recommend close follow up with Urology as scheduled on 06/17/[address] Guileln CKD Baseline creatinine around 1.4 per Epic Creat 1.6 today (increased from 1.5 yesterday) Recommend adequate hydration over the weekend Script provided for BMP to be drawn on Sunday to make sure renal function is not worsening Bladder cancer Following with [facility] and Oncology CT urography on 03/13/2025 revealed 3.5cm bladder wall mass Pathology from TURBT on 05/18/2025 revealed invasive papillary urothelial carcinoma, high grade with muscularis propria involvement PET scan scheduled on 06/16/[address] Guillen of Urology at [facility] on 06/17/[address] Arora of Oncology on 06/24/2025 Referral for Rad Onc in process Hypertension Continue losartan Hyperlipidemia Continue statin BPH Continue finasteride and tamsulosin Depression/anxiety Continue venlafaxine Dementia Continue donepezil and memantine GERD Continue PPI Patient seen in collaboration with Dr. Stephens. Please see addendum. Notes For Next Care Provider 89 year old male with bladder cancer presented with dysuria and found to have possible stricture and mild hydronephrosis. Patient declined stent placement and catheterization. Requested discharge on pain medicine and given antibiotics for UTI. Recommend close follow up with Urology and PCP for hydronephrosis and kidney function. Medication Changes From Visit Augmentin x5 days for UTI Pyridium and Oxycodone for pain control Admission HPI Per Admitting Provider 89-year-old male with PMH HLD, diet-controlled DM type II, sinus bradycardia, mild AAS, moderate MR, severe TR, CKD stage III, history of esophageal cancer s/p chemo and radiation and esophagectomy and partial gastrectomy, GERD, dementia, and other problems listed below who presents to the ED for evaluation of dysuria. Patient recently underwent TURBT on 05/18/2025 at [facility] by Dr. Oro. Pathology showing invasive papillary urothelial carcinoma, high-grade with muscularis propria involvement. patient has upcoming appointments [place] [facility] [place] onc[place]. Patient reports dysuria since his surgery. Provided urine sample yesterday through PCPs office, urine culture currently pending. Patient denies fevers and chills. Appetite has been poor however denies abdominal pain, nausea, vomit, diarrhea. No chest pain, shortness of breath, palpitations. Denies lightheadedness, dizziness, diaphoresis, syncopal events. No hematuria reported. In the ED, patient is hemodynamically stable, labs show WBC 13K, creatinine 1.5, UA 1+ bacteria and > 50 WBC. Patient was given IV Tylenol, IV ceftriaxone, IVF. Admission Exam Per Admitting Provider Constitutional: + frail appearing; no acute distress Respiratory: normal respiratory effort, lungs clear to auscultation Cardiovascular: Rate/Rhythm: regular rate and regular rhythm Heart Sounds: + murmur ( grade 3/6 systolic murmur) Vessels: normal peripheral pulses Extremities: + edema ( trace edema BLE) Skin: no rashes, warm and dry Neurologic: no focal motor deficits Psychiatric: A+Ox3, euthymic affect Insight: + limited insight Discharge Exam General/Psych: frail, elderly, sitting up in bed, NAD, conversing easily Head: normocephalic, atraumatic Eyes: normal inspection, PERRL, conjunctivae pink ENT: external ear and nose normal, oropharynx normal Neck: normal visual inspection, trachea midline Respiratory: normal respiratory effort, lungs clear to auscultation, no wheeze/rales/rhonchi, no accessory muscle use Cardiovascular: regular rate and rhythm, +murmur Extremities: no cyanosis or clubbing, normal peripheral pulses, no BLE edema Abdomen/GI: normal bowel sounds, soft, +suprapubic tenderness Neurologic/MSK: A+Ox3, motor strength 5/5, moves all extremities Skin: no rashes, normal color, warm and dry Updated Medication List Medication Instructions Recorded Confirmed Type acetaminophen 500 mg tablet 1,000 mg PO Q6H PRN Fever 01/01/25 06/11/25 History (Tylenol Extra Strength) aspirin 81 mg tablet,delayed 81 mg PO QPM 01/01/25 06/11/25 History release cholecalciferol (vitamin D3) 25 25 mcg PO QAM 01/01/25 06/11/25 History mcg (1,000 unit) tablet (Vitamin D3) cyanocobalamin (vitamin B-12) 1,000 mcg PO QAM 01/01/25 06/11/25 History 1,000 mcg tablet (Vitamin B-12) donepezil 10 mg tablet 10 mg PO QAM 01/01/25 06/11/25 History ferrous sulfate 325 mg (65 mg 325 mg PO QAM 01/01/25 06/11/25 History iron) tablet (Iron (ferrous sulfate)) finasteride 5 mg tablet 5 mg PO QAM 01/01/25 06/11/25 History losartan 25 mg tablet 12.5 mg PO HS 01/01/25 06/11/25 History memantine 5 mg tablet 5 mg PO QAM 01/01/25 06/11/25 History multivitamin 1 tab PO QAM 01/01/25 06/11/25 History pantoprazole 40 mg tablet,delayed 40 mg PO QAM 01/01/25 06/11/25 History release simvastatin 40 mg tablet 40 mg PO QPM 01/01/25 06/11/25 History tamsulosin 0.4 mg capsule 0.4 mg PO BID 01/01/25 06/11/25 History venlafaxine 75 mg capsule,extended 75 mg PO QAM 01/01/25 06/11/25 History release 24 hr amoxicillin 500 mg-potassium 1 tab PO BID #10 tabs 06/12/25 Rx clavulanate 125 mg tablet (Augmentin) oxycodone 5 mg tablet 2.5 mg (1/2 x 5 mg) PO TID #10 tabs 06/12/25 Rx phenazopyridine 100 mg tablet 100 mg PO TID PRN pain #30 tabs 06/12/25 Rx (Pyridium) Hospital Stay Data Consultations 06/11/25 15:51 ED Decision to Admit Stat 06/11/25 16:22 Consult Urology Routine Diagnostic Imagining Performed Abdomen/Pelvis CT 06/11/25 13:[address] WITH IV CONTRAST CT DOSE: 1193.12 mGy.cm HISTORY: lower ab pain; urinary symptoms, bladder procedure TECHNIQUE: Multiaxial CT images of the abdomen and pelvis were performed following the IV administration of 90 cc of Optiray, A dose lowering technique was utilized adhering to the principles of ALARA. COMPARISON STUDY: None FINDINGS: There is a trace left pleural effusion. There is mild elevation of the left hemidiaphragm. There is partially visualized hiatal hernia versus gastric pull-up. There are mitral valvular calcifications. There are calcifications at the left diaphragm. There is a calcified pulmonary granuloma at the right lower lobe. ABDOMEN: Liver, gallbladder, spleen, pancreas, and adrenal glands are unremarkable. There are scattered atherosclerotic calcifications. No abdominal aortic aneurysm. There is a small amount of contrast in the right renal collecting system which limits evaluation for renal calculi. There is trace left renal collecting system contrast versus a tiny nonobstructing calculus. There is no hydronephrosis on the right. There is mild left hydronephrosis and hydroureter. No ureteral calculi seen. Pelvis: Prostate is enlarged. Urinary bladder is distended with mildly thickened wall consistent with chronic bladder outlet obstruction. There is mild inflammation at the urinary bladder consistent with cystitis. There is a possible mild stricture at the left UVJ. There is sigmoid diverticulosis. No acute diverticulitis. No bowel inflammation or obstruction. No free fluid or free air. No enlarged adenopathy. 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 IMPRESSION: 1. Findings consistent with chronic bladder outlet obstruction and cystitis. 2. Mild left hydronephrosis and hydroureter with possible mild stricture at the left UVJ. 3. Otherwise as described. ACT 112: Negative or not required by law. The above report was generated using voice recognition software. It may contain grammatical, syntax or spelling errors. Electronically signed by: Kalia De La Vega M.D. 06/11/2025 3:25 PM Pending Results Patient Have Any Pending Studies at Discharge: Yes Discharge Instructions Given to Patient (Per Discharging Provider) You presented to the hospital with painful urination that has been happening since your procedure earlier in the month. A CT scan showed swelling in your left kidney which could be caused by a possible stricture or narrowing in your urinary tract. Our Urology team in the hospital offered to place a catheter to help with urination but you did not want this. You were given medicine which relieved the pain you were feeling and you would like to go home. Your urine culture from [facility] is preliminarily growing bacteria so you will need to take a course of antibiotics for a urinary tract infection. Your kidney function was slightly worse than your baseline in the hospital. Please stay hydrated over the weekend and get your blood drawn on Sunday to recheck your kidney function and make sure it is not getting any worse. Please follow up with your Urologist next week as scheduled and discuss the CT scan findings and your kidney function. They can also review the final results of your urine culture. MEDICATION CHANGES: Start Augmentin 500mg by mouth twice daily for 5 days Start Phenazopyridine (Pyridium) 100mg by mouth up to three times per day as needed for bladder pain Start Oxycodone 2.5mg by mouth as needed for severe pain SUMMARY OF TEST RESULTS: See above PENDING TEST RESULTS: Urine culture RECOMMENDATIONS FOR FOLLOW-UP: Please follow up with your Urologist on 06/17/2025 as scheduled next week and your PCP on 06/22/2025 as scheduled OTHER INSTRUCTIONS: Seek medical attention if you have: * temperature above 101 * chest pain or trouble breathing * abdominal pain, nausea, vomiting * diarrhea, dark stools or bloody stools * any unanswered questions or concerns Call 911 if symptoms are severe. It has been a pleasure taking care of you. Please take care of yourself. If you have any questions regarding your recent hospitalization please contact [facility] and request [facility] @ [phone]. Total Time Total Time Spent Total Time Spent (In Minutes): I spent a total of 35 minutes coordinating, documenting and providing care for this patient excluding time spent in the performance of separately billed services or time spent by another provider/QHP.
[2025-06-12] MEDS ORDERED: cefTRIAXone SODIUM 1,000 MG/50 ML BAG IV SCH (15:00)
== END 2025-06-12 13:19 | disposition home or self-care (01) ==
LOC: 3W 12:23 → ED 12:23 → SUATTDRO 16:04 → 3W 18:17